=== PATIENT | male | born 1945 | race Caucasian/White ===

== ENCOUNTER 2022-10-08 21:03 | Emergency (ER) | payer BC, MEDICARE, OTHER ==
[2022-10-08 21:43] LABS: #Lymphocytes 0.6 thou/uL (1.20-3.40); #Monocytes 0.3 thou/uL (0.11-0.59); #Neutrophils 5.5 thou/uL (1.40-6.50); %Basophils 0.3 % (0.0-1.0); %Eosinophils 0.4 % (0.0-10.0); %Lymphocytes 9.9 % (21.0-51.0); %Monocytes 4.3 % (0.0-10.0); %Neutrophils 85.2 % (42.0-75.0); Hemoglobin 15.4 g/dL (14.0-18.0); Mean Corpuscular HGB CONC 32.7 g/dL (32.0-36.0); Mean Corpuscular Volume 94.7 fl (78.0-98.0); Mean Platelet Volume 7.6 fL (7.4-10.4); Platelet Count 187 10x3/uL (130-400); Red Blood Cell (RBC) Count 4.95 mill/uL (4.70-6.10); White Blood Cell (WBC) Count 6.4 10x3/uL (4.8-10.8)
[2022-10-08 22:10] LABS: ALT (SGPT) 15 U/L (8-55); AST (SGOT) 16 U/L (5-34); Albumin 4.2 g/dL (3.4-4.8); Alkaline Phosphatase 78 U/L (40-110); Anion Gap 15 mmol/L (10-20); BUN (Urea Nitrogen) 20 mg/dL (8.4-25.7); Calc. Creatinine Clearance 0 mL/min (70-130); Calcium 9.1 mg/dL (7.8-10.44); Carbon Dioxide 21 mmol/L (23-31); Chloride 105 mmol/L (98-107); Estimated GFR 63; Globulin 2.8 g/dL (2.4-3.5); Glucose 135 mg/dL (83-110); Potassium 4.7 mmol/L (3.5-5.1); Sodium 136 mmol/L (136-145)
[2022-10-08 22:34] LABS: SARS-CoV-2 NAA Rapid Test DETECTED (NotDetected)
[2022-10-09 02:25] LABS: Bilirubin, Total 0.4 mg/dL (0.2-1.2)
== END 2022-10-08 23:43 | disposition home or self-care (01) ==
LOC: ERS 21:03
DX: U07.1 COVID-19 (principal)
CPT/HCPCS: 36415; 71045; 80053; 83605; 85025; 85652; 86140; 93005; 94760

== ENCOUNTER 2023-08-09 16:31 | Outpatient (CLI) | payer MEDICARE, BC | END 2023-08-09 16:32 | disposition home or self-care (01) | LOC: SCSRAD 16:31 | PROVIDERS: ATTEND Family Medicine | DX: R05.1 Acute cough (principal) | CPT/HCPCS: 71046 ==